=== PATIENT | male | born 1980 | race Caucasian/White ===

== ENCOUNTER 2017-03-30 11:52 | Emergency (ER) | payer SELFPAY ==
[~2017-03-30] VITALS: Ht 180.3 cm; Wt 87.1 kg
--- NOTE | ~2017-03-30 | CT4 ---
[facility]. [facility] A Service of [facility] & [facility] RADIOLOGY TEXT RESULTS PATIENT: SEVERINO LARA LOCATION: SED : 84 UNIT #: [id number] AGE: [address]: Teresa Zepeda MD SEX: M ORDER DR: [id number] [address] [address] [id number] MR#: [id number] #: [id number] NAME: SEVERINO LARA : 1980 SEX: M STUDY DATE/TIME: 03/30/2017 12:25 UNIT: SED ROOM: STUDY DESCRIPTION: CT Abd and Pelv Wo Cont Attending Physician: Teresa Zepeda M.D. Ordering Physician: Teresa Zepeda M.D. Primary Care Physician: No Primary Care Physician MEDICAL IMAGING REPORT This report is preliminary unless electronic signature is present. EXAM CT scan of the abdomen and pelvis without contrast, 03/30/2017. HISTORY Right flank pain and pain with urination for 2 days. Evaluate for obstructing renal calculus. TECHNIQUE Spiral CT was performed through the abdomen and pelvis without oral or intravenous contrast administration using renal stone protocol. This CT exam was performed with one or more of the following radiation dose reduction techniques: automatic exposure control, adjustment of mA and/or kV according to patient size, and iterative reconstruction. FINDINGS ABDOMEN: There is no obstructing renal or ureteral calculus. There is a 2-cm low-density lesion containing marked increased density along its dependent portion in the upper pole of the left kidney. This may represent a hemorrhagic cyst. Findings are indeterminate due to lack of intravenous contrast. Consider nonemergent correlation with renal ultrasound for characterization. The liver, pancreas, gallbladder and biliary tree and adrenal glands are normal. There is a 1-cm low-density lesion along the anterior aspect of the spleen probably representing a cyst or hemangioma. PELVIS FINDINGS: The gut, mesenteric and casey structures are normal. There is no free fluid in the abdomen or pelvis. There are postsurgical changes of prior right inguinal hernia repair. IMPRESSION 1. No obstructing renal or ureteral calculus. 2. 2 cm indeterminate lesion on the upper pole of the left kidney which demonstrates decreased density along its upper aspect and increased STS. [facility] A Service of [facility] & [facility] RADIOLOGY TEXT RESULTS PATIENT: SEVERINO LARA LOCATION: SED : 84 UNIT #: [id number] AGE: [address]: Teresa Zepeda MD SEX: M ORDER DR: density along its inferior aspect possibly representing a hemorrhagic or proteinaceous cyst. This finding is indeterminate due to the lack of intravenous contrast. I recommend nonemergent correlation with renal ultrasound for characterization of this finding. 3. Postsurgical changes of prior right inguinal hernia repair. Dictated by... Moises Josue M.D. THIS IS AN ELECTRONICALLY VERIFIED REPORT Moises Josue M.D. at 03/31/2017 6:33 AM TEJAS/tami TD: 03/30/2017 23:42 JOB #: [id number] MEDICAL IMAGING REPORT Page 1 of 1
[~2017-03-30 11:52] MED LIST: ALPRAZOLAM PO; AMOXICILLIN500 M1 PO; LEXAPRO PO; PROTONIX PO; SKELAXIN PO; TYLENOL #3 PO; ZOLOFT50 MG PO
[2017-03-30] MEDS ORDERED: NO MEDICATIONS (12:05)
[2017-03-30 12:24] LABS: URINE APPEARANCE CLEAR; URINE BILIRUBIN NEG (NEG); URINE BLOOD NEG (NEG); URINE COLOR YELLOW; URINE GLUCOSE NEG (NORM); URINE KETONE TRACE (NEG); URINE LEUKOCYTE ESTERASE NEG (NEG); URINE NITRATE NEG (NEG); URINE PROTEIN NEG (NEG); URINE SPECIFIC GRAVITY 1.025 (1.003-1.035); URINE UROBILINOGEN 0.2 MG/DL (NORM)
[2017-03-30 12:26] LABS: MICRO INDICATED? NO; URINE SOURCE CLEAN CATCH
[2017-03-30 12:36] LABS: AMPHETAMINE NEG (NEG); BARBITURATES NEG (NEG); BENZODIAZEPINES NEG (NEG); COCAINE NEG (NEG); MARIJUANA NEG (NEG); OPIATES NEG (NEG); TRICYCLIC ANTIDEPRESSANTS NEG (NEG); U METHADONE NEG (NEG)
[2017-04-03 10:39] LABS: CHLAMYDIA TRACH Not Detected (Not Detected); N GONOR Not Detected (Not Detected)
== END 2017-03-30 13:31 | disposition home or self-care (01) ==
LOC: SED 11:52
PROVIDERS: Student in an Organized Health Care Education/Training Program
DX: N28.1 Cyst of kidney, acquired (principal); N34.2 Other urethritis
CPT/HCPCS: 74176; 80307; 81003; 87491; 87591; 99284